=== PATIENT | male | born 1985 | race African-American/Black ===

== ENCOUNTER 2019-04-09 16:28 | Emergency (ER) | payer OTHER ==
[~2019-04-09] VITALS: Ht 172.7 cm; Wt 77.1 kg
== END 2019-04-09 18:02 | disposition home or self-care (01) ==
LOC: ER 16:28
DX: S90.01XA Contusion of right ankle, initial encounter (principal); W10.8XXA Fall (on) (from) other stairs and steps, initial encounter; Y93.89 Activity, other specified; Y92.098 Other place in other non-institutional residence as the place of occurrence of the external cause; Y99.8 Other external cause status